=== PATIENT | male | born 1980 | race African-American/Black ===

== ENCOUNTER 2018-12-30 18:37 | Emergency (ER) | payer OTHER ==
[~2018-12-30] VITALS: Ht 170.2 cm; Wt 99.8 kg
[~2018-12-30 18:37] MED LIST: AUGMENTIN 500-1 EACH PO; NOHOMEMEDICATIONS
[2018-12-30 20:46] VITALS: BP 132/91
== END 2018-12-30 20:47 | disposition home or self-care (01) ==
LOC: ER 18:37
DX: S61.210A Laceration without foreign body of right index finger without damage to nail, initial encounter (principal); F17.210 Nicotine dependence, cigarettes, uncomplicated; W26.0XXA Contact with knife, initial encounter; Y93.89 Activity, other specified; Y92.89 Other specified places as the place of occurrence of the external cause; Y99.8 Other external cause status

== ENCOUNTER 2019-06-11 18:17 | Emergency (ER) | payer OTHER ==
[~2019-06-11] VITALS: Ht 170.2 cm; Wt 104.3 kg
[2019-06-11 20:51] LABS: HEMATOCRIT 47.7 % (42.0-52.0); HEMOGLOBIN 15.9 gm/dL (14.0-18.0); MCH 27.5 pg (26.0-34.0); MCHC 33.2 g/dL (28.0-37.0); MCV 82.6 fL (80.0-100.0); PLATELET COUNT 259 thou/uL (150-400); RBC 5.78 mil/uL (4.50-6.00); RDW 15.2 % (10.5-14.5); WBC 6.3 thou/uL (4.0-11.0)
[2019-06-11 20:57] LABS: URINE BILIRUBIN NEGATIVE (Negative); URINE BLOOD NEGATIVE (Negative); URINE CLARITY CLEAR; URINE COLOR YELLOW; URINE GLUCOSE-RANDOM* NEGATIVE (Negative); URINE KETONES NEGATIVE (Negative); URINE LEUKOCYTES-REFLEX TRACE (Negative); URINE NITRITE-REFLEX NEGATIVE (Negative); URINE PROTEIN (DIPSTICK) NEGATIVE (Negative); URINE UROBILINOGEN 0.2 E.U./dl (0.2-1.0)
[2019-06-11 21:01] LABS: ANION GAP 10 mmol/L (7-16); BUN 11 mg/dL (7-18); CALCIUM 9.5 mg/dL (8.5-10.1); CHLORIDE 100 mmol/L (98-107); CO2 26 mmol/L (21-32); CREATININE 1.2 mg/dL (0.7-1.3); GLUCOSE 103 mg/dL (74-106); POTASSIUM 3.8 mmol/L (3.5-5.1); SODIUM 136 mmol/L (136-145)
[2019-06-11 21:06] LABS: ALBUMIN 4.3 g/dL (3.4-5.0); DIRECT BILIRUBIN < 0.1 mg/dL (<0.1-0.3); MAGNESIUM 1.8 mg/dL (1.8-2.4); SGOT 51 U/L (15-37); SGPT 77 U/L (30-65); TOTAL BILIRUBIN 0.7 mg/dL (<0.1-1.0)
[2019-06-11 21:08] LABS: TROPONIN-I <0.06 ng/mL (<0.06)
[2019-06-11 21:41] LABS: ABSOLUTE NEUTROPHILS 3.3 thou/uL (1.4-8.2)
[2019-06-11 21:42] LABS: PLATELET ESTIMATE NORMAL
[2019-06-11] MEDS ORDERED: CLARITIN-D 121 EAC1 PO (22:30)
[2019-06-11] MEDS ORDERED: TESSALON PERLE100 MG PO (22:30)
[2019-06-11] MEDS ORDERED: IBUPROFEN 600600 M1 PO (22:30)
[2019-06-12 00:30] VITALS: BP 130/90
--- NOTE | 2019-06-12 08:18 | EKG ---
[place] [address] [facility] [employer] [place] [address] ELECTROCARDIOGRAM REPORT Name: JOSUÉ TENORIO Room #: DEP [facility]AMAEstrellita#: [id number] ������������������ Admission: 06/11/19 ������������������ Attend Phys: Discharge: 06/12/19 ������������������ Date of : 82 Report #: [id number] ����������������������������������������������������������������� [id number] THIS REPORT FOR: //name// ED Test Date: 2019-06-11 Test Time: 18:34:12 Pat Name: JOSUÉ TENORIO Department: Room: Gender: Senior Electrical Design Engineer: [facility] : 1980 Requested By: Abdoul Hudson Order Number: [id number] MD: Jeffrey Pimentel Measurements Intervals [place] Rate: 96 P: 26 [place]: 138 QRS: -11 QRSD: 81 T: 23 QT: 343 QTc: 434 Interpretive Statements Sinus rhythm Normal tracing Baseline wander in lead(s) V4 Compared to ECG 02/04/2015 13:05:08 Sinus tachycardia no longer present Electronically Signed On 06-12-2019 8:17:55 CDT by Jeffrey Pimentel [email or web address] ��������������������������������������������� <ELECTRONICALLY SIGNED> ���������������������������������������� By: Jeffrey Pimentel MD, [facility] ��������������������������������������������� 06/12/19 08 33 33 Jeffrey Pimentel MD, FACC /EPI
== END 2019-06-12 01:01 | disposition home or self-care (01) ==
LOC: ER 18:17
PROVIDERS: Emergency Medicine
DX: B34.9 Viral infection, unspecified (principal); R55 Syncope and collapse; F17.210 Nicotine dependence, cigarettes, uncomplicated